=== PATIENT | female | born 1940 | race Caucasian/White ===

== ENCOUNTER 2023-07-23 13:38 | Inpatient (IN) | payer MEDICARE, OTHER ==
[~2023-07-23] VITALS: Ht 160 cm; Wt 85.3 kg
[~2023-07-23 13:38] MED LIST: ATOR-2 PO; GABA300C; LISI1TAB51 PO; METO-411 PO
[2023-07-23 14:32] LABS: BASOPHILS % (AUTO) 0.5 % (0-1); EOSINOPHILS # (AUTO) 0.2 X10'3 (0-0.9); EOSINOPHILS % (AUTO) 1.9 % (0-6); HEMATOCRIT 43.5 % (35.0-45.0); HEMOGLOBIN 14.7 g/dl (12.0-16.0); LYMPHOCYTES # (AUTO) 1.3 X10'3 (1.1-4.8); LYMPHOCYTES % (AUTO) 15.6 % (21-51); MEAN CORPUSCULAR HGB CONC 33.9 g/dL (33.0-36.5); MEAN CORPUSCULAR VOLUME 94.5 FL (78-98); MEAN PLATELET VOLUME 8.1 FL (7.4-10.4); MONOCYTES # (AUTO) 0.9 X10'3 (0-0.9); MONOCYTES % (AUTO) 10.5 % (2-12); NEUTROPHILS # (AUTO) 5.9 X10'3 (1.8-7.7); NEUTROPHILS % (AUTO) 71.5 % (42-75); PLATELET COUNT 270 X10'3 (140-440); RED BLOOD COUNT 4.61 X10'6 (4.20-5.60); RED CELL DISTRIBUTION WIDTH 14.2 % (11.5-14.5); WHITE BLOOD COUNT 8.3 X10'3 (4.5-11.0)
[2023-07-23 15:11] LABS: ALANINE AMINOTRANSFERASE 14 U/L (12-78); ALBUMIN 3.7 G/DL (3.4-5.0); ALBUMIN/GLOBULIN RATIO 0.8 (1.1-1.5); ALKALINE PHOSPHATASE 155 IU/L (46-116); ANION GAP 9 (8-16); ASPARTATE AMINO TRANSFERASE 19 U/L (10-37); BLOOD UREA NITROGEN 20 MG/DL (7-18); BUN/CREATININE RATIO 20.6 (10.0-20.0); CALCIUM 9.7 MG/DL (8.5-10.1); CHLORIDE 97 MMOL/L (99-107); CREATININE 0.97 MG/DL (0.40-0.90); GLUCOSE 104 MG/DL (70-104); POTASSIUM 3.3 MMOL/L (3.5-5.1); SODIUM 137 MMOL/L (135-145); TOTAL CARBON DIOXIDE 31.4 MMOL/L (24-32); TOTAL PROTEIN 8.5 G/DL (6.4-8.2); eCRCL 38 ML/MIN; eGFR 55 ML/MIN
[2023-07-23] MEDS ORDERED: RIVA20TA PO (15:16)
[2023-07-23 15:18] LABS: ETHANOL < 10 MG/DL (<10); PRO BRAIN NATRIURETIC PEPTIDE 1839 PG/ML (0-450)
[2023-07-23 15:54] LABS: BILIRUBIN,URINE NEGATIVE (Neg); CLARITY,URINE CLEAR (Clear); COLOR,URINE YELLOW (Yellow); GLUCOSE, URINE NEGATIVE (Neg); KETONES,URINE NEGATIVE (Neg); LEUKOCYTE ESTERASE ,URINE NEGATIVE (Neg); NITRITES, URINE NEGATIVE (Neg); OCCULT BLOOD,URINE TRACE-INTACT (Neg); PROTEIN,URINE NEGATIVE (Neg); UROBILINOGEN,URINE 0.2 E.U/dL (0.2-1.0)
[2023-07-23 15:58] LABS: UA COLLECTION TYPE FOLEY CATH
[2023-07-23 15:59] LABS: BACTERIA,URINE NONE SEEN /HPF (Neg); MUCUS STRANDS FEW /LPF (Neg); RBC,URINE 0-2 /HPF (0-2); SQUAMOUS EPITHELIAL CELL,UR MODERATE /LPF (FEW); WBC,URINE NONE SEEN /HPF (0-4)
[2023-07-23 16:03] LABS: URINE AMPHETAMINE SCREEN NEGATIVE (Neg); URINE BARBITUATE SCREEN NEGATIVE (Neg); URINE BENZODIAZEPINES SCREEN NEGATIVE (Neg); URINE CANNABINOID SCREEN NEGATIVE (Neg); URINE COCAINE SCREEN NEGATIVE (Neg); URINE METHADONE SCREEN NEGATIVE (Neg); URINE OPIATE SCREEN NEGATIVE (Neg); URINE PHENCYCLIDINE SCREEN NEGATIVE (Neg)
[2023-07-23] MEDS ORDERED: magnesium 4gm in 100ml NS 100 ML IV PRN (22:25)
[2023-07-23] MEDS ORDERED: magnesium 2GM in 50ml NS 50 ML IV PRN (22:25)
[2023-07-23] MEDS ORDERED: potassium Cl 20 mEq SR tablet PO PRN (22:25)
[2023-07-23] MEDS ORDERED: acetaminophen 325mg tablet PO PRN (22:25)
[2023-07-23] MEDS ORDERED: magnesium Cl slow-release 64mg tablet PO PRN (22:25)
[2023-07-23] MEDS ORDERED: ondansetron/PF 4mg/2ml inj IV PRN (22:25)
[2023-07-23] MEDS ORDERED: potassium Cl 40MEQ/1/2NS 520ml 520 ML IV PRN (22:25)
[2023-07-23] MEDS ORDERED: normal saline 1000ml 1,000 ML IV SCH (22:25)
[2023-07-23] MEDS: rivaroxaban 20mg tablet PO SCH (23:06)
[2023-07-24] VITALS (7 sets, daily range): BP systolic 108–160; BP diastolic 71–92; PULSE 83–97; RESP 15–20; TEMP 97.6–98.5; O2SAT 95–100
[2023-07-24 02:36] LABS: BASOPHILS # (AUTO) 0.1 X10'3 (0-0.2); EOSINOPHILS # (AUTO) 0.3 X10'3 (0-0.9); EOSINOPHILS % (AUTO) 2.6 % (0-6); LYMPHOCYTES # (AUTO) 1.5 X10'3 (1.1-4.8); PLATELET COUNT 255 X10'3 (140-440)
[2023-07-24 02:38] LABS: HEMATOCRIT 41.5 % (35.0-45.0); HEMOGLOBIN 14.2 g/dl (12.0-16.0); LYMPHOCYTES % (AUTO) 15.1 % (21-51); MEAN CORPUSCULAR HEMOGLOBIN 32.3 PG (27.0-31.0); MEAN CORPUSCULAR HGB CONC 34.3 g/dL (33.0-36.5); MEAN CORPUSCULAR VOLUME 94.3 FL (78-98); MONOCYTES % (AUTO) 9.9 % (2-12); NEUTROPHILS # (AUTO) 7.1 X10'3 (1.8-7.7); NEUTROPHILS % (AUTO) 71.4 % (42-75); WHITE BLOOD COUNT 9.9 X10'3 (4.5-11.0)
[2023-07-24 03:03] LABS: ALBUMIN 3.3 G/DL (3.4-5.0); ANION GAP 10 (8-16); BLOOD UREA NITROGEN 17 MG/DL (7-18); CALCIUM 9.3 MG/DL (8.5-10.1); CHLORIDE 99 MMOL/L (99-107); CREATININE 0.74 MG/DL (0.40-0.90); GLUCOSE 102 MG/DL (70-104); MAGNESIUM 1.7 MG/DL (1.5-2.4); POTASSIUM 3.1 MMOL/L (3.5-5.1); SODIUM 138 MMOL/L (135-145); TOTAL CARBON DIOXIDE 28.8 MMOL/L (24-32); eCRCL 49 ML/MIN; eGFR 75 ML/MIN
[2023-07-24] MEDS: HYDROchlorothiazide 25mg tablet PO SCH (08:03)
[2023-07-24] MEDS: metoprolol succinate 25mg (24-HOUR) SR. Tablet PO SCH (08:04)
[2023-07-24] MEDS: potassium Cl 20 mEq SR tablet PO PRN (08:05)
[2023-07-24] MEDS: lisinopril 20mg tablet PO SCH (08:05)
[2023-07-24] MEDS: K and/or MAG REPLACEMENT MC SCH ×2 (08:06→20:00)
[2023-07-24] MEDS: rivaroxaban 20mg tablet PO SCH (17:50)
[2023-07-25 06:00] VITALS: BP 127/71; PULSE 72; RESP 13; TEMP 97.6; O2SAT 96
[2023-07-25 06:09] LABS: BASOPHILS # (AUTO) 0.1 X10'3 (0-0.2); BASOPHILS % (AUTO) 0.7 % (0-1); EOSINOPHILS # (AUTO) 0.4 X10'3 (0-0.9); HEMATOCRIT 42.1 % (35.0-45.0); HEMOGLOBIN 14.1 g/dl (12.0-16.0); LYMPHOCYTES # (AUTO) 1.5 X10'3 (1.1-4.8); LYMPHOCYTES % (AUTO) 15.6 % (21-51); MEAN CORPUSCULAR HEMOGLOBIN 31.8 PG (27.0-31.0); MEAN CORPUSCULAR HGB CONC 33.5 g/dL (33.0-36.5); MEAN CORPUSCULAR VOLUME 94.8 FL (78-98); MEAN PLATELET VOLUME 8.2 FL (7.4-10.4); MONOCYTES % (AUTO) 10.4 % (2-12); NEUTROPHILS # (AUTO) 6.7 X10'3 (1.8-7.7); NEUTROPHILS % (AUTO) 69.3 % (42-75); PLATELET COUNT 260 X10'3 (140-440); RED BLOOD COUNT 4.44 X10'6 (4.20-5.60); RED CELL DISTRIBUTION WIDTH 14.1 % (11.5-14.5); WHITE BLOOD COUNT 9.6 X10'3 (4.5-11.0)
[2023-07-25 06:14] LABS: ALBUMIN 3.3 G/DL (3.4-5.0); ANION GAP 7 (8-16); BLOOD UREA NITROGEN 14 MG/DL (7-18); BUN/CREATININE RATIO 17.3 (10.0-20.0); CALCIUM 9.1 MG/DL (8.5-10.1); CHLORIDE 100 MMOL/L (99-107); CREATININE 0.81 MG/DL (0.40-0.90); GLUCOSE 99 MG/DL (70-104); MAGNESIUM 1.7 MG/DL (1.5-2.4); POTASSIUM 3.3 MMOL/L (3.5-5.1); SODIUM 136 MMOL/L (135-145); TOTAL CARBON DIOXIDE 28.9 MMOL/L (24-32); eCRCL 45 ML/MIN; eGFR 68 ML/MIN
[2023-07-25 08:00] VITALS: RESP 13; O2SAT 96
[2023-07-25] MEDS: K and/or MAG REPLACEMENT MC SCH (08:00)
[2023-07-25] MEDS ORDERED: atorvastatin 20mg tablet PO SCH (08:00)
[2023-07-25] MEDS: HYDROchlorothiazide 25mg tablet PO SCH (08:50)
[2023-07-25 08:51] VITALS: BP_SYST 127; PULSE 72
[2023-07-25] MEDS: lisinopril 20mg tablet PO SCH (08:51)
[2023-07-25] MEDS: metoprolol succinate 25mg (24-HOUR) SR. Tablet PO SCH (08:52)
[2023-07-25] MEDS: potassium Cl 20 mEq SR tablet PO PRN (12:04)
[2023-07-25 15:47] VITALS: RESP 18
== END 2023-07-25 15:50 | disposition home health service (06) | DRG 69 ==
LOC: ER 13:39 → ED HOLD 22:33 → ORTHO 4S 07-24 09:19
PROVIDERS: ADMIT Internal Medicine; ATTEND Family Medicine
DX: G45.9 Transient cerebral ischemic attack, unspecified (principal); E87.6 Hypokalemia; E86.0 Dehydration; E78.5 Hyperlipidemia, unspecified; Z60.2 Problems related to living alone; I48.91 Unspecified atrial fibrillation; L82.1 Other seborrheic keratosis; I50.9 Heart failure, unspecified; I11.0 Hypertensive heart disease with heart failure; I69.320 Aphasia following cerebral infarction; Z79.899 Other long term (current) drug therapy
CPT/HCPCS: 36415; 70450; 70544; 70547; 70551; 71045; 80048; 80053; 80305; 80320; 81001; 82140; 82948; 83605; 83735; 83880; 84484; 85025; 87040; 92508; 92616; 93005; 97116; 97161; 97530; 99285; A4353; G0378; J7030

== ENCOUNTER 2023-08-16 11:32 | Emergency (ER) | payer MEDICARE, OTHER ==
[~2023-08-16] VITALS: Ht 162.6 cm; Wt 77.3 kg
[~2023-08-16 11:32] MED LIST changes: +RIVA20TA PO
[2023-08-16 11:34] VITALS: TEMP 97.4
[2023-08-16] MEDS: cocaine 4% topical solution 4ml bottle MM ONE (11:45)
[2023-08-16 12:06] LABS: BASOPHILS % (AUTO) 0.4 % (0-1); EOSINOPHILS # (AUTO) 0.3 X10'3 (0-0.9); EOSINOPHILS % (AUTO) 3.1 % (0-6); HEMATOCRIT 42.2 % (35.0-45.0); HEMOGLOBIN 13.7 g/dl (12.0-16.0); LYMPHOCYTES # (AUTO) 1.2 X10'3 (1.1-4.8); LYMPHOCYTES % (AUTO) 14.5 % (21-51); MEAN CORPUSCULAR HGB CONC 32.4 g/dL (33.0-36.5); MEAN CORPUSCULAR VOLUME 95.7 FL (78-98); MONOCYTES # (AUTO) 0.9 X10'3 (0-0.9); MONOCYTES % (AUTO) 10.4 % (2-12); NEUTROPHILS # (AUTO) 5.9 X10'3 (1.8-7.7); NEUTROPHILS % (AUTO) 71.6 % (42-75); PLATELET COUNT 300 X10'3 (140-440); RED BLOOD COUNT 4.41 X10'6 (4.20-5.60); WHITE BLOOD COUNT 8.3 X10'3 (4.5-11.0)
[2023-08-16 12:13] LABS: ALBUMIN 3.4 G/DL (3.4-5.0); ANION GAP 6 (8-16); BLOOD UREA NITROGEN 30 MG/DL (7-18); BUN/CREATININE RATIO 33.7 (10.0-20.0); CALCIUM 9.1 MG/DL (8.5-10.1); CHLORIDE 104 MMOL/L (99-107); CREATININE 0.89 MG/DL (0.40-0.90); GLUCOSE 108 MG/DL (70-104); POTASSIUM 3.9 MMOL/L (3.5-5.1); SODIUM 142 MMOL/L (135-145); TOTAL CARBON DIOXIDE 31.9 MMOL/L (24-32); eCRCL 43 ML/MIN; eGFR 61 ML/MIN
[2023-08-16 12:17] LABS: APTT 42 SECONDS (22-32); PROTHROMBIN TIME 30.3 SECONDS (9.0-12.0)
[2023-08-16 12:44] VITALS: BP 143/56; PULSE 71; RESP 16; O2SAT 97
== END 2023-08-16 14:01 | disposition home or self-care (01) ==
LOC: ER 11:33
DX: R04.0 Epistaxis (principal); Z79.899 Other long term (current) drug therapy
CPT/HCPCS: 36415; 80048; 85025; 85610; 85730; 99283; A6222

== ENCOUNTER 2023-11-24 03:23 | Emergency (ER) | payer MEDICAID, MEDICARE ==
[~2023-11-24] VITALS: Ht 165.1 cm; Wt 72.7 kg
[2023-11-24 04:22] VITALS: TEMP 97.5
[2023-11-24 04:27] VITALS: RESP 16
[2023-11-24 04:45] LABS: BASOPHILS # (AUTO) 0.1 X10'3 (0-0.2); BASOPHILS % (AUTO) 1.1 % (0-1); EOSINOPHILS # (AUTO) 0.3 X10'3 (0-0.9); EOSINOPHILS % (AUTO) 4.1 % (0-6); HEMATOCRIT 44.5 % (35.0-45.0); HEMOGLOBIN 14.9 g/dl (12.0-16.0); LYMPHOCYTES # (AUTO) 1.4 X10'3 (1.1-4.8); LYMPHOCYTES % (AUTO) 17.1 % (21-51); MEAN CORPUSCULAR HEMOGLOBIN 31.5 PG (27.0-31.0); MEAN CORPUSCULAR HGB CONC 33.6 g/dL (33.0-36.5); MEAN CORPUSCULAR VOLUME 93.6 FL (78-98); MEAN PLATELET VOLUME 7.9 FL (7.4-10.4); MONOCYTES # (AUTO) 0.8 X10'3 (0-0.9); MONOCYTES % (AUTO) 10.5 % (2-12); NEUTROPHILS # (AUTO) 5.4 X10'3 (1.8-7.7); NEUTROPHILS % (AUTO) 67.2 % (42-75); PLATELET COUNT 301 X10'3 (140-440); RED BLOOD COUNT 4.75 X10'6 (4.20-5.60); RED CELL DISTRIBUTION WIDTH 14.3 % (11.5-14.5)
[2023-11-24 04:57] LABS: APTT 27 SECONDS (22-32); INR 1.1 INR; PROTHROMBIN TIME 11.3 SECONDS (9.0-12.0)
[2023-11-24 05:00] VITALS: BP 122/61; PULSE 92; O2SAT 98
== END 2023-11-24 06:05 | disposition home or self-care (01) ==
LOC: ER 03:24
DX: R04.0 Epistaxis (principal); Z79.899 Other long term (current) drug therapy
CPT/HCPCS: 36415; 85025; 85610; 85730; 99284

== ENCOUNTER 2024-06-06 11:02 | Inpatient (IN) | payer MEDICARE, OTHER ==
[~2024-06-06] VITALS: Ht 167.6 cm; Wt 68.4 kg
[~2024-06-06 11:02] MED LIST changes: -ATOR-2 PO; +ATOR-429 PO; +DABI150C PO; +FURO-150 PO; -GABA300C; -LISI1TAB51 PO; +LISI40TA13 PO; +POTA-208 PO; -RIVA20TA PO
[2024-06-06 13:11] LABS: BASOPHILS % (AUTO) 0.3 % (0-1); EOSINOPHILS # (AUTO) 0.2 X10'3 (0-0.9); EOSINOPHILS % (AUTO) 1.5 % (0-6); HEMOGLOBIN 15.7 g/dl (12.0-16.0); LYMPHOCYTES % (AUTO) 9.4 % (21-51); MEAN CORPUSCULAR HEMOGLOBIN 31.6 PG (27.0-31.0); MEAN CORPUSCULAR HGB CONC 33.3 g/dL (33.0-36.5); MEAN CORPUSCULAR VOLUME 94.7 FL (78-98); MEAN PLATELET VOLUME 8.1 FL (7.4-10.4); MONOCYTES # (AUTO) 1.2 X10'3 (0-0.9); MONOCYTES % (AUTO) 11.4 % (2-12); NEUTROPHILS # (AUTO) 8.3 X10'3 (1.8-7.7); NEUTROPHILS % (AUTO) 77.4 % (42-75); PLATELET COUNT 240 X10'3 (140-440); RED BLOOD COUNT 4.96 X10'6 (4.20-5.60); RED CELL DISTRIBUTION WIDTH 14.7 % (11.5-14.5); WHITE BLOOD COUNT 10.7 X10'3 (4.5-11.0)
[2024-06-06] MEDS: normal saline 1000ml 1,000 ML IV ONE (13:11)
[2024-06-06 13:12] LABS: ALANINE AMINOTRANSFERASE 20 U/L (12-78); ALBUMIN 3.4 G/DL (3.4-5.0); ALBUMIN/GLOBULIN RATIO 0.9 (1.1-1.5); ALKALINE PHOSPHATASE 163 IU/L (46-116); ANION GAP 8 (8-16); ASPARTATE AMINO TRANSFERASE 34 U/L (10-37); BILIRUBIN,TOTAL 3.4 MG/DL (0.1-1.0); BLOOD UREA NITROGEN 36 MG/DL (7-18); BUN/CREATININE RATIO 39.6 (10.0-20.0); CALCIUM 8.6 MG/DL (8.5-10.1); CHLORIDE 107 MMOL/L (99-107); CREATININE 0.91 MG/DL (0.40-0.90); GLUCOSE 100 MG/DL (70-104); POTASSIUM 3.3 MMOL/L (3.5-5.1); SODIUM 144 MMOL/L (135-145); TOTAL CARBON DIOXIDE 29.1 MMOL/L (24-32); TOTAL PROTEIN 7.3 G/DL (6.4-8.2); eCRCL 41 ML/MIN; eGFR 59 ML/MIN
[2024-06-06 13:41] LABS: THYROID STIMULATING HORMONE 2.74 ulU/ml (0.34-4.50)
[2024-06-06] MEDS: CefTRIAXone 2gm/D5W 50ml BAG 50 ML IV ONE (14:03)
[2024-06-06 15:56] LABS: BILIRUBIN,URINE NEGATIVE (Neg); CLARITY,URINE CLOUDY (Clear); COLOR,URINE YELLOW (Yellow); GLUCOSE, URINE NEGATIVE (Neg); KETONES,URINE TRACE mg/dl (Neg); LEUKOCYTE ESTERASE ,URINE MODERATE (Neg); NITRITES, URINE POSITIVE (Neg); OCCULT BLOOD,URINE SMALL (Neg); PROTEIN,URINE 100 mg/dl (Neg); UROBILINOGEN,URINE 0.2 E.U/dL (0.2-1.0)
[2024-06-06 16:00] LABS: UA COLLECTION TYPE CLN CATCH MIDSTREAM
[2024-06-06 16:12] LABS: BACTERIA,URINE 4+ /HPF (Neg); RBC,URINE 0-2 /HPF (0-2); SQUAMOUS EPITHELIAL CELL,UR FEW /LPF (FEW); WBC,URINE 50-100 /HPF (0-4)
[2024-06-06 16:27] LABS: URINE AMPHETAMINE SCREEN NEGATIVE (Neg); URINE BARBITUATE SCREEN NEGATIVE (Neg); URINE BENZODIAZEPINES SCREEN NEGATIVE (Neg); URINE CANNABINOID SCREEN NEGATIVE (Neg); URINE COCAINE SCREEN NEGATIVE (Neg); URINE METHADONE SCREEN NEGATIVE (Neg); URINE OPIATE SCREEN NEGATIVE (Neg); URINE PHENCYCLIDINE SCREEN NEGATIVE (Neg)
[2024-06-06] MEDS ORDERED: CefTRIAXone/D5W-Rocephin 1gm 50 ML IV ONE (21:55)
[2024-06-07] MEDS ORDERED: magnesium sulf-water 2g/50mL 50 ML IV PRN
[2024-06-07] MEDS ORDERED: ondansetron/PF 4mg/2ml inj IV PRN
[2024-06-07] MEDS ORDERED: potassium Cl 40MEQ/1/2NS 520ml 520 ML IV PRN
[2024-06-07] MEDS ORDERED: mag hydrox/Alum hydrox/simeth 30ml oral suspension PO PRN
[2024-06-07] MEDS ORDERED: magnesium Cl slow-release 64mg tablet PO PRN
[2024-06-07] MEDS ORDERED: potassium Cl 20 mEq SR tablet PO PRN
[2024-06-07] MEDS ORDERED: magnesium hydroxide 30ml (MOM) UD suspension PO PRN
[2024-06-07] MEDS ORDERED: magnesium sulf-water 4G/100mL 100 ML IV PRN
[2024-06-07] MEDS ORDERED: acetaminophen 325mg tablet PO PRN
[2024-06-07] MEDS: metoprolol succinate 25mg (24-HOUR) SR. Tablet PO ONE (01:23)
[2024-06-07] MEDS: normal saline 1000ml 1,000 ML IV SCH (01:25)
[2024-06-07 03:10] VITALS: BP 120/56; PULSE 74; RESP 16; TEMP 97.7; O2SAT 96
[2024-06-07 06:00] VITALS: BP 145/61; PULSE 96; RESP 16; TEMP 97.8; O2SAT 93
[2024-06-07] MEDS: K and/or MAG REPLACEMENT MC SCH (08:00)
[2024-06-07 10:00] VITALS: BP 123/52; PULSE 85; RESP 16; TEMP 97.7; O2SAT 99
[2024-06-07] MEDS: metoprolol succinate 25mg (24-HOUR) SR. Tablet PO SCH (10:18)
[2024-06-07] MEDS: lisinopril 20mg tablet PO SCH (10:19)
[2024-06-07] MEDS: dabigatran 150mg capsule PO SCH (10:19)
[2024-06-07] MEDS: docusate sod 100mg capsule PO SCH (10:19)
[2024-06-07 11:44] LABS: BASOPHILS % (AUTO) 0.3 % (0-1); EOSINOPHILS # (AUTO) 0.2 X10'3 (0-0.9); EOSINOPHILS % (AUTO) 2.6 % (0-6); HEMATOCRIT 43.7 % (35.0-45.0); HEMOGLOBIN 14.6 g/dl (12.0-16.0); LYMPHOCYTES % (AUTO) 10.9 % (21-51); MEAN CORPUSCULAR HEMOGLOBIN 31.4 PG (27.0-31.0); MEAN CORPUSCULAR HGB CONC 33.4 g/dL (33.0-36.5); MEAN PLATELET VOLUME 8.4 FL (7.4-10.4); MONOCYTES # (AUTO) 1.1 X10'3 (0-0.9); MONOCYTES % (AUTO) 11.8 % (2-12); NEUTROPHILS # (AUTO) 6.7 X10'3 (1.8-7.7); NEUTROPHILS % (AUTO) 74.4 % (42-75); PLATELET COUNT 194 X10'3 (140-440); RED BLOOD COUNT 4.65 X10'6 (4.20-5.60); RED CELL DISTRIBUTION WIDTH 14.7 % (11.5-14.5)
[2024-06-07 11:56] LABS: INR 1.2 INR; PROTHROMBIN TIME 12.7 SECONDS (9.0-12.0)
[2024-06-07 12:13] LABS: ALBUMIN 2.8 G/DL (3.4-5.0); ANION GAP 9 (8-16); BLOOD UREA NITROGEN 25 MG/DL (7-18); BUN/CREATININE RATIO 31.3 (10.0-20.0); CALCIUM 7.7 MG/DL (8.5-10.1); CHLORIDE 107 MMOL/L (99-107); GLUCOSE 87 MG/DL (70-104); MAGNESIUM 1.7 MG/DL (1.5-2.4); POTASSIUM 3.3 MMOL/L (3.5-5.1); PRO BRAIN NATRIURETIC PEPTIDE 3235 PG/ML (0-450); SODIUM 143 MMOL/L (135-145); TOTAL CARBON DIOXIDE 26.6 MMOL/L (24-32); eCRCL 47 ML/MIN; eGFR 69 ML/MIN
[2024-06-07] MEDS: CefTRIAXone/D5W-Rocephin 1gm 50 ML IV SCH (14:35)
[2024-06-07] MEDS: potassium Cl 20 mEq SR tablet PO PRN (16:07)
[2024-06-07 18:30] VITALS: BP 124/63; PULSE 79; RESP 15; TEMP 98.4; O2SAT 97
[2024-06-07] MEDS: atorvastatin 20mg tablet PO SCH (20:31)
[2024-06-07 22:00] VITALS: BP 119/80; PULSE 72; RESP 16; TEMP 97.6; O2SAT 92
[2024-06-08 06:00] VITALS: BP 155/82; PULSE 72; RESP 16; TEMP 98.4; O2SAT 97
[2024-06-08 08:00] LABS: BASOPHILS % (AUTO) 0.5 % (0-1); EOSINOPHILS # (AUTO) 0.3 X10'3 (0-0.9); EOSINOPHILS % (AUTO) 2.9 % (0-6); HEMATOCRIT 47.8 % (35.0-45.0); HEMOGLOBIN 15.9 g/dl (12.0-16.0); LYMPHOCYTES # (AUTO) 1.2 X10'3 (1.1-4.8); LYMPHOCYTES % (AUTO) 12.9 % (21-51); MEAN CORPUSCULAR HEMOGLOBIN 31.9 PG (27.0-31.0); MEAN CORPUSCULAR HGB CONC 33.2 g/dL (33.0-36.5); MEAN CORPUSCULAR VOLUME 96.1 FL (78-98); MEAN PLATELET VOLUME 7.9 FL (7.4-10.4); MONOCYTES # (AUTO) 1.1 X10'3 (0-0.9); MONOCYTES % (AUTO) 12.1 % (2-12); NEUTROPHILS # (AUTO) 6.6 X10'3 (1.8-7.7); NEUTROPHILS % (AUTO) 71.6 % (42-75); PLATELET COUNT 184 X10'3 (140-440); RED BLOOD COUNT 4.97 X10'6 (4.20-5.60); RED CELL DISTRIBUTION WIDTH 15.5 % (11.5-14.5); WHITE BLOOD COUNT 9.1 X10'3 (4.5-11.0)
[2024-06-08 08:29] LABS: ALBUMIN 2.7 G/DL (3.4-5.0); ANION GAP 8 (8-16); BLOOD UREA NITROGEN 23 MG/DL (7-18); BUN/CREATININE RATIO 31.9 (10.0-20.0); CALCIUM 8.2 MG/DL (8.5-10.1); CHLORIDE 106 MMOL/L (99-107); CREATININE 0.72 MG/DL (0.40-0.90); GLUCOSE 98 MG/DL (70-104); MAGNESIUM 1.9 MG/DL (1.5-2.4); SODIUM 136 MMOL/L (135-145); TOTAL CARBON DIOXIDE 21.8 MMOL/L (24-32); eCRCL 56 ML/MIN; eGFR 78 ML/MIN
[2024-06-08 08:33] LABS: POTASSIUM 4.7 MMOL/L (3.5-5.1)
[2024-06-08 10:00] VITALS: BP 155/83; PULSE 77; RESP 16; TEMP 98.7; O2SAT 96
[2024-06-08] MEDS ORDERED: diazepam inj 5 MG/ML inj. IV PRN ×3 (11:50→18:15)
[2024-06-08] MEDS: ringers solution, lacted 1,000 ML IV SCH (13:00)
[2024-06-08] MEDS: ringers solution, lacted 1,000 ML IV ONE (16:14)
[2024-06-08 18:00] VITALS: BP 103/86; PULSE 73; RESP 18; TEMP 97.3; O2SAT 93
[2024-06-08 22:00] VITALS: BP 129/61; PULSE 70; RESP 16; TEMP 97.6; O2SAT 97
[2024-06-09] MEDS: diazepam inj 5 MG/ML inj. IV PRN (00:40)
[2024-06-09 06:00] VITALS: BP 151/99; PULSE 58; RESP 18; TEMP 97.8; O2SAT 92
[2024-06-09 07:23] LABS: BASOPHILS % (AUTO) 0.4 % (0-1); EOSINOPHILS # (AUTO) 0.3 X10'3 (0-0.9); EOSINOPHILS % (AUTO) 3.1 % (0-6); HEMATOCRIT 43.8 % (35.0-45.0); HEMOGLOBIN 14.8 g/dl (12.0-16.0); LYMPHOCYTES # (AUTO) 1.1 X10'3 (1.1-4.8); LYMPHOCYTES % (AUTO) 11.2 % (21-51); MEAN CORPUSCULAR HEMOGLOBIN 32.1 PG (27.0-31.0); MEAN CORPUSCULAR HGB CONC 33.7 g/dL (33.0-36.5); MEAN CORPUSCULAR VOLUME 95.1 FL (78-98); MEAN PLATELET VOLUME 8.1 FL (7.4-10.4); MONOCYTES # (AUTO) 1.2 X10'3 (0-0.9); MONOCYTES % (AUTO) 12.7 % (2-12); NEUTROPHILS % (AUTO) 72.6 % (42-75); PLATELET COUNT 209 X10'3 (140-440); RED BLOOD COUNT 4.61 X10'6 (4.20-5.60); WHITE BLOOD COUNT 9.7 X10'3 (4.5-11.0)
[2024-06-09 08:59] LABS: ALBUMIN 2.7 G/DL (3.4-5.0); ANION GAP 16 (8-16); BLOOD UREA NITROGEN 18 MG/DL (7-18); CALCIUM 8.2 MG/DL (8.5-10.1); CHLORIDE 102 MMOL/L (99-107); CREATININE 0.72 MG/DL (0.40-0.90); GLUCOSE 80 MG/DL (70-104); MAGNESIUM 1.8 MG/DL (1.5-2.4); POTASSIUM 4.5 MMOL/L (3.5-5.1); SODIUM 135 MMOL/L (135-145); TOTAL CARBON DIOXIDE 16.8 MMOL/L (24-32); eCRCL 56 ML/MIN; eGFR 78 ML/MIN
[2024-06-09 10:00] VITALS: BP 163/63; PULSE 74; RESP 18; TEMP 97.7; O2SAT 94
[2024-06-09] MEDS: ringers solution, lacted 1,000 ML IV ONE (12:27)
[2024-06-09 18:00] VITALS: BP 129/57; PULSE 75; RESP 20; TEMP 97.5; O2SAT 94
[2024-06-09 19:45] LABS: BILIRUBIN,URINE NEGATIVE (Neg); CLARITY,URINE CLEAR (Clear); COLOR,URINE YELLOW (Yellow); GLUCOSE, URINE NEGATIVE (Neg); KETONES,URINE NEGATIVE (Neg); LEUKOCYTE ESTERASE ,URINE NEGATIVE (Neg); NITRITES, URINE NEGATIVE (Neg); OCCULT BLOOD,URINE TRACE-INTACT (Neg); PROTEIN,URINE TRACE mg/dl (Neg); UROBILINOGEN,URINE 0.2 E.U/dL (0.2-1.0)
[2024-06-09 19:52] LABS: UA COLLECTION TYPE STRAIGHT CATH
[2024-06-09 19:53] LABS: SQUAMOUS EPITHELIAL CELL,UR FEW /LPF (FEW); TRANSITIONAL EPI CELLS,URINE FEW /HPF
[2024-06-09 19:59] LABS: BACTERIA,URINE NONE SEEN /HPF (Neg); MUCUS STRANDS NONE SEEN /LPF (Neg)
[2024-06-09 22:00] VITALS: BP 136/59; PULSE 73; RESP 14; TEMP 98.5; O2SAT 94
[2024-06-10 06:00] VITALS: BP 154/48; PULSE 73; RESP 18; TEMP 97.5; O2SAT 95
[2024-06-10 09:20] LABS: BASOPHILS # (AUTO) 0.1 X10'3 (0-0.2); BASOPHILS % (AUTO) 0.7 % (0-1); EOSINOPHILS # (AUTO) 0.2 X10'3 (0-0.9); EOSINOPHILS % (AUTO) 2.6 % (0-6); HEMATOCRIT 43.4 % (35.0-45.0); HEMOGLOBIN 14.7 g/dl (12.0-16.0); LYMPHOCYTES # (AUTO) 0.8 X10'3 (1.1-4.8); MEAN CORPUSCULAR HEMOGLOBIN 31.6 PG (27.0-31.0); MEAN CORPUSCULAR VOLUME 92.9 FL (78-98); MEAN PLATELET VOLUME 8.1 FL (7.4-10.4); MONOCYTES % (AUTO) 10.6 % (2-12); NEUTROPHILS # (AUTO) 7.3 X10'3 (1.8-7.7); NEUTROPHILS % (AUTO) 77.1 % (42-75); PLATELET COUNT 236 X10'3 (140-440); RED BLOOD COUNT 4.67 X10'6 (4.20-5.60); RED CELL DISTRIBUTION WIDTH 14.9 % (11.5-14.5); WHITE BLOOD COUNT 9.5 X10'3 (4.5-11.0)
[2024-06-10 09:44] LABS: ALBUMIN 2.6 G/DL (3.4-5.0); ANION GAP 7 (8-16); BLOOD UREA NITROGEN 12 MG/DL (7-18); BUN/CREATININE RATIO 16.9 (10.0-20.0); CALCIUM 8.6 MG/DL (8.5-10.1); CHLORIDE 104 MMOL/L (99-107); CREATININE 0.71 MG/DL (0.40-0.90); GLUCOSE 83 MG/DL (70-104); MAGNESIUM 1.7 MG/DL (1.5-2.4); POTASSIUM 3.5 MMOL/L (3.5-5.1); SODIUM 137 MMOL/L (135-145); TOTAL CARBON DIOXIDE 26.2 MMOL/L (24-32); eCRCL 57 ML/MIN; eGFR 79 ML/MIN
[2024-06-10 18:00] VITALS: BP 146/59; PULSE 89; RESP 20; TEMP 97.5; O2SAT 96
[2024-06-10 20:00] VITALS: RESP 18; O2SAT 96
[2024-06-10] MEDS ORDERED: diazepam inj 5 MG/ML inj. IV ONE (23:15)
[2024-06-10] MEDS: diazepam inj 5 MG/ML inj. IM ONE (23:44)
[2024-06-11 06:00] VITALS: BP 173/86; PULSE 81; RESP 18; TEMP 97.2; O2SAT 98
[2024-06-11 06:52] LABS: BASOPHILS # (AUTO) 0.1 X10'3 (0-0.2); BASOPHILS % (AUTO) 0.8 % (0-1); EOSINOPHILS # (AUTO) 0.2 X10'3 (0-0.9); EOSINOPHILS % (AUTO) 2.7 % (0-6); HEMATOCRIT 46.7 % (35.0-45.0); HEMOGLOBIN 15.6 g/dl (12.0-16.0); MEAN CORPUSCULAR HEMOGLOBIN 31.3 PG (27.0-31.0); MEAN CORPUSCULAR HGB CONC 33.4 g/dL (33.0-36.5); MEAN CORPUSCULAR VOLUME 93.8 FL (78-98); MEAN PLATELET VOLUME 8.3 FL (7.4-10.4); MONOCYTES # (AUTO) 1.1 X10'3 (0-0.9); MONOCYTES % (AUTO) 12.6 % (2-12); NEUTROPHILS % (AUTO) 71.9 % (42-75); PLATELET COUNT 247 X10'3 (140-440); RED BLOOD COUNT 4.98 X10'6 (4.20-5.60); RED CELL DISTRIBUTION WIDTH 15.1 % (11.5-14.5); WHITE BLOOD COUNT 8.4 X10'3 (4.5-11.0)
[2024-06-11 07:14] LABS: ALBUMIN 2.6 G/DL (3.4-5.0); ANION GAP 8 (8-16); BLOOD UREA NITROGEN 11 MG/DL (7-18); BUN/CREATININE RATIO 14.7 (10.0-20.0); CALCIUM 8.3 MG/DL (8.5-10.1); CHLORIDE 104 MMOL/L (99-107); CREATININE 0.75 MG/DL (0.40-0.90); GLUCOSE 82 MG/DL (70-104); MAGNESIUM 1.7 MG/DL (1.5-2.4); SODIUM 138 MMOL/L (135-145); TOTAL CARBON DIOXIDE 25.9 MMOL/L (24-32); eCRCL 54 ML/MIN; eGFR 74 ML/MIN
[2024-06-11 07:25] LABS: POTASSIUM 3.7 MMOL/L (3.5-5.1)
[2024-06-11 08:00] VITALS: RESP 18; O2SAT 96
[2024-06-11 10:00] VITALS: BP 131/70; PULSE 91; RESP 15; TEMP 97.6; O2SAT 96
[2024-06-11 18:00] VITALS: BP 157/91; PULSE 79; RESP 18; TEMP 97.9; O2SAT 90
[2024-06-11 20:00] VITALS: RESP 18; O2SAT 94
[2024-06-11 22:00] VITALS: BP_SYST 158; BP_SYST 181; BP_DIAS 86; BP_DIAS 90; PULSE 103; RESP 18; TEMP 98.6; O2SAT 18
[2024-06-12] MEDS: CefTRIAXone/D5W-Rocephin 1gm 50 ML IV SCH (00:49)
[2024-06-12 06:00] VITALS: BP 142/62; PULSE 88; RESP 18; TEMP 98.8; O2SAT 93
[2024-06-12 08:30] VITALS: RESP 18; O2SAT 96
[2024-06-12 10:00] VITALS: BP 150/71; PULSE 74; RESP 21; TEMP 97.8; O2SAT 98
[2024-06-12] MEDS ORDERED: CEFD300C3 PO (10:32)
[2024-06-12 11:00] VITALS: BP 150/71; PULSE 74; RESP 21; TEMP 97.8; O2SAT 98
[2024-06-12] MEDS: lactose-reduced food (Ensure Enlive) - 237ml bottle PO SCH (13:00)
== END 2024-06-12 17:00 | DRG 640 ==
LOC: ER 11:03 → ED HOLD 06-07 00:07 → ORTHO 4S 06-07 03:09
PROVIDERS: ADMIT Internal Medicine Critical Care Medicine; ATTEND Family Medicine
DX: E86.0 Dehydration (principal); G93.41 Metabolic encephalopathy; N39.0 Urinary tract infection, site not specified; I48.20 Chronic atrial fibrillation, unspecified; I50.22 Chronic systolic (congestive) heart failure; I25.10 Atherosclerotic heart disease of native coronary artery without angina pectoris; I11.0 Hypertensive heart disease with heart failure; E87.6 Hypokalemia; E78.5 Hyperlipidemia, unspecified; Z86.73 Personal history of transient ischemic attack (TIA), and cerebral infarction without residual deficits; Z79.899 Other long term (current) drug therapy
CPT/HCPCS: 36415; 70450; 71045; 80048; 80053; 80305; 81001; 82140; 83605; 83735; 83880; 84145; 84443; 85025; 85610; 87040; 87081; 87088; 92508; 92616; 96365; 97110; 97116; 97162; 97530; 99285; A6213; A6250; A6260; A6449; C1758; G0378; J0696; J3360; J7030; J7040; J7120

== ENCOUNTER 2024-06-21 14:41 | Emergency (ER) | payer MEDICARE, OTHER ==
[~2024-06-21] VITALS: Ht 167.6 cm; Wt 76.0 kg
[~2024-06-21 14:41] MED LIST changes: +CEFD300C3 PO
[2024-06-21 15:46] LABS: BASOPHILS # (AUTO) 0.1 X10'3 (0-0.2); EOSINOPHILS # (AUTO) 0.2 X10'3 (0-0.9); MEAN PLATELET VOLUME 8.1 FL (7.4-10.4); MONOCYTES # (AUTO) 0.7 X10'3 (0-0.9)
[2024-06-21 15:48] LABS: BASOPHILS % (AUTO) 0.9 % (0-1); HEMATOCRIT 46.1 % (35.0-45.0); HEMOGLOBIN 15.5 g/dl (12.0-16.0); LYMPHOCYTES # (AUTO) 1.2 X10'3 (1.1-4.8); LYMPHOCYTES % (AUTO) 16.1 % (21-51); MEAN CORPUSCULAR HEMOGLOBIN 31.7 PG (27.0-31.0); MEAN CORPUSCULAR HGB CONC 33.6 g/dL (33.0-36.5); MEAN CORPUSCULAR VOLUME 94.1 FL (78-98); MONOCYTES % (AUTO) 10.1 % (2-12); NEUTROPHILS % (AUTO) 69.9 % (42-75); PLATELET COUNT 394 X10'3 (140-440); RED CELL DISTRIBUTION WIDTH 15.1 % (11.5-14.5); WHITE BLOOD COUNT 7.2 X10'3 (4.5-11.0)
[2024-06-21 16:03] LABS: APTT 46 SECONDS (22-32); INR 1.5 INR; PROTHROMBIN TIME 15.4 SECONDS (9.0-12.0)
[2024-06-21 16:06] LABS: ALANINE AMINOTRANSFERASE 14 U/L (12-78); ALBUMIN 3.3 G/DL (3.4-5.0); ALBUMIN/GLOBULIN RATIO 0.7 (1.1-1.5); ALKALINE PHOSPHATASE 201 IU/L (46-116); ANION GAP 8 (8-16); ASPARTATE AMINO TRANSFERASE 22 U/L (10-37); BILIRUBIN,TOTAL 1.7 MG/DL (0.1-1.0); BLOOD UREA NITROGEN 12 MG/DL (7-18); BUN/CREATININE RATIO 11.7 (10.0-20.0); CALCIUM 9.3 MG/DL (8.5-10.1); CHLORIDE 101 MMOL/L (99-107); CREATININE 1.03 MG/DL (0.40-0.90); GLUCOSE 142 MG/DL (70-104); POTASSIUM 3.3 MMOL/L (3.5-5.1); SODIUM 137 MMOL/L (135-145); TOTAL CARBON DIOXIDE 28.5 MMOL/L (24-32); TOTAL PROTEIN 7.8 G/DL (6.4-8.2); eCRCL 39 ML/MIN; eGFR 51 ML/MIN
[2024-06-21 17:16] LABS: BILIRUBIN,URINE NEGATIVE (Neg); CLARITY,URINE CLEAR (Clear); COLOR,URINE YELLOW (Yellow); GLUCOSE, URINE NEGATIVE (Neg); KETONES,URINE NEGATIVE (Neg); LEUKOCYTE ESTERASE ,URINE NEGATIVE (Neg); NITRITES, URINE NEGATIVE (Neg); OCCULT BLOOD,URINE NEGATIVE (Neg); PROTEIN,URINE NEGATIVE (Neg); UROBILINOGEN,URINE 0.2 E.U/dL (0.2-1.0)
[2024-06-21 17:21] LABS: UA COLLECTION TYPE STRAIGHT CATH
[2024-06-21 18:43] VITALS: BP 138/58; PULSE 79; RESP 18; TEMP 97.7; O2SAT 94
== END 2024-06-21 18:46 | disposition home or self-care (01) ==
LOC: ER 14:41
DX: S00.83XA Contusion of other part of head, initial encounter (principal); I48.91 Unspecified atrial fibrillation; F03.90 Unspecified dementia, unspecified severity, without behavioral disturbance, psychotic disturbance, mood disturbance, and anxiety; W18.39XA Other fall on same level, initial encounter; Y93.89 Activity, other specified; Y92.89 Other specified places as the place of occurrence of the external cause; Y99.8 Other external cause status
CPT/HCPCS: 36415; 70450; 80053; 81003; 85025; 85610; 85730; 99285; C1758